=== PATIENT | male | born 1975 | race Asian ===

== ENCOUNTER 2022-07-15 08:57 | Day surgery (SDC) | payer OTHER ==
[2022-07-08 11:24] VITALS: BMI 28.8
[2022-07-15 13:08] VITALS: RESP 18; TEMP 98
[2022-07-15 13:42] VITALS: BP 110/75; PULSE 72
== END 2022-07-15 13:43 | disposition home or self-care (01) ==
LOC: FASU-ENDO 08:57
PROVIDERS: ATTEND Internal Medicine Gastroenterology
PROC: 0DBN8ZX Excision of Sigmoid Colon, Via Natural or Artificial Opening Endoscopic, Diagnostic (ICD-10-PCS; principal; 2022-07-15 11:15)
DX: Z12.11 Encounter for screening for malignant neoplasm of colon (principal); D12.5 Benign neoplasm of sigmoid colon; K64.1 Second degree hemorrhoids
CPT/HCPCS: 88305-TC

== ENCOUNTER 2024-04-12 09:50 | Day surgery (SDC) | payer OTHER ==
[2024-04-11 10:32] VITALS: BMI 30.4
[2024-04-12] MEDS ORDERED: LIDOCAINE HCL/PF 2% SDV 5ML VIAL ONE (10:27)
[2024-04-12 11:34] VITALS: RESP 16; TEMP 97.7
[2024-04-12 12:03] VITALS: BP 110/65; PULSE 78
== END 2024-04-12 12:33 | disposition home or self-care (01) ==
LOC: FASU-ENDO 09:50
PROVIDERS: ATTEND Internal Medicine Gastroenterology
PROC: 0DBN8ZX Excision of Sigmoid Colon, Via Natural or Artificial Opening Endoscopic, Diagnostic (ICD-10-PCS; 2024-04-12)
PROC: 0DBM8ZX Excision of Descending Colon, Via Natural or Artificial Opening Endoscopic, Diagnostic (ICD-10-PCS; principal; 2024-04-12 11:03)
DX: Z12.11 Encounter for screening for malignant neoplasm of colon (principal); D12.4 Benign neoplasm of descending colon; K64.1 Second degree hemorrhoids; Z86.0109 Personal history of other colon polyps
CPT/HCPCS: 88305-TC